=== PATIENT | female | born 1990 | race Hispanic/Latino ===

== ENCOUNTER 2017-11-21 10:25 | Inpatient (IN) | payer BC ==
--- NOTE | 2017-11-21 07:58 | PDOC.LDHP ---
Labor and Delivery H&P Chief complaint: scheduled section HPI: 27 y/o HF at 39-40 weeks by EDC of 11/26 with prior c/s who is admitted for repeat c/s today. Has diagnosis of A1GDM and has had average glycemic control with reported fasting glucose <100 and 2 hour post prandial <120. Reports good kovement. Has been normotensive... Current gestational age (weeks): 39 Due date: 11/26/17 Dating criteria: last menstrual period Grav: 3 Para: 1 Current complications: gestational diabetes Abnormal US findings: No Current medications: pre-sandip vitamins Previous surgical history: low tranverse CS Allergies/Adverse Reactions: Allergies Allergy/AdvReac Type Severity Reaction Status Date / Time No Known Allergies Allergy Verified 10/25/13 11:42 - Physical Exam General: NAD, resting, breathing through contractions, other Heart: RRR Lungs: nonlabored breathing Abdomen: gravid Extremeties: trace edema FHT: category 1 - OB Labs RH: positive Antibody Screen: negative HIV: negative RPR: negative HEPSAg: negative 1 hour GCT: positive GBS: negative Urine drug screen: not done Rubella: immune - Assessment L&D Assessment: scheduled repeat section [id number] diabetes - Plan Plan: admit to L&D, to OR for section
[~2017-11-21 10:25] MED LIST: Bicitra 30 ML UDCUP PO SCH; CEFAZOLIN/Water 2 GM/20 ML SYRINGE SLOW IVP SCH; Ondansetron HCl/PF 4 MG/2 ML Vial IVP PRN; Promethazine HCl 25 MG/ML VIAL IM PRN
[2017-11-21] MEDS: Lactated Ringer's 1,000 ML IV SCH ×4 (10:55→22:59)
[2017-11-21 11:13] LABS: Hemoglobin 13.6 g/dL (12.0-16.0); Mean Corpuscular HGB CONC 35.9 g/dL (32.0-36.0); Mean Corpuscular Hemoglobin 31.6 pg (27.0-31.0); Mean Corpuscular Volume 87.9 fL (78.0-98.0); Mean Platelet Volume 9.2 fL (7.4-10.4); Platelet Count 127 thou/uL (130-400); RBC Distribution Width 12.3 % (11.5-14.5); Red Blood Cell (RBC) Count 4.31 mill/uL (4.20-5.40); White Blood Cell (WBC) Count 7.8 thou/uL (4.8-10.8)
[2017-11-21 11:32] VITALS: BMI 38.4
[2017-11-21 11:51] LABS: HBSAg Index 0.18 S/CO (0-0.99); Hep B Surf Ag Non-Reactive S/CO (NonReactive); Syphilis Antibody Nonreactive (Nonreactive); Syphilis Antibody Index 0.04 S/CO (<1.00 Non-Reactive)
[2017-11-21] MEDS ORDERED: Ketorolac Tromethamine 30 MG/ML VIAL ONE ×2 (11:56→13:08)
[2017-11-21] MEDS ORDERED: PHENYLEPHRINE-NS 100 MCG/ML 10 ML SYRINGE ONE ×2 (11:56→12:15)
[2017-11-21] MEDS ORDERED: Fentanyl 100 MCG/2 ML VIAL ONE (12:13)
[2017-11-21] MEDS ORDERED: Oxytocin 10 UNITS/ML VIAL ONE (12:14)
[2017-11-21] MEDS ORDERED: Morphine PF 1 MG/ML SYR ONE (12:15)
[2017-11-21] MEDS ORDERED: ePHEDrine/0.9% NaCl/PF SYRINGE 50 mg/10 ml ONE (12:15)
[2017-11-21] MEDS ORDERED: Ondansetron HCl/PF 4 MG/2 ML Vial ONE (12:15)
[2017-11-21] MEDS ORDERED: Bupivacaine 0.75% W/DEXTROSE 8.25% 2 ML AMP ONE (12:15)
[2017-11-21] MEDS ORDERED: Lidocaine 2% PF Inj 2 ML VIAL ONE (12:22)
[2017-11-21] MEDS ORDERED: HYDROmorphone 2 MG/ML VIAL SLOW IVP PRN (13:01)
[2017-11-21] MEDS ORDERED: Ondansetron HCl/PF 4 MG/2 ML Vial IVP PRN ×3 (13:01→18:01)
--- NOTE | 2017-11-21 13:12 | PDOC.OPDEL ---
OB Operative/Delivery Note Delivery Dr/Surgeon: Chavez Assist: Mcmahon Pre-Delivery Diagnosis: scheduled section Procedure/Post Delivery Dx: repeat low transverse CS Weeks gestation: 39 Anesthesia: spinal - Findings A Sex: male Weight: 10 lb 15 oz - 1 min: 8 - 5 min: 9 - Additional Findings/Plan Placenta delivered: manual removal findings: low transverse hysterotomy without extension
[2017-11-21] MEDS ORDERED: Methylergonovine 0.2 MG/ML VIAL IM PRN (13:13)
[2017-11-21] MEDS ORDERED: Adacel (T-DAP) 0.5 ML VIAL IM ONE (13:13)
[2017-11-21] MEDS ORDERED: diphenhydrAMINE 25 MG CAP PO PRN (13:13)
[2017-11-21] MEDS ORDERED: Misoprostol 200 MCG TAB PR PRN (13:13)
[2017-11-21] MEDS ORDERED: Simethicone Chewable 80 MG TAB PO PRN (13:13)
[2017-11-21] MEDS ORDERED: Bisacodyl 10 MG SUPP PR PRN (13:13)
[2017-11-21] MEDS ORDERED: Lanolin Ointment 7 GM TUBE TOP PRN (13:13)
[2017-11-21] MEDS ORDERED: Zolpidem Tartrate 5 MG TAB PO PRN (13:13)
[2017-11-21] MEDS ORDERED: Ketorolac Tromethamine 30 MG/ML VIAL IVP SCH (13:15)
--- NOTE | 2017-11-21 13:28 | PDOC.EVN ---
Event Note - Event Note Event Note: CS Assist note: I was scrubbed and assisted with this patient's repeat LTCS via pfannestiel. Prior CS, Hx GDM. Dr Byrne/Lisandro No evidence complications. Baby vigorous, NC X 1
[2017-11-21] MEDS ORDERED: NS / Oxytocin 40 units/1000ml 1,000 ML ONE (14:39)
[2017-11-21] MEDS ORDERED: Meperidine HCl/PF 25 MG/ML VIAL ONE ×2 (14:54→15:18)
[2017-11-21] MEDS: Meperidine HCl/PF 25 MG/ML VIAL SLOW IVP PRN ×2 (14:55→15:18)
[2017-11-21] MEDS ORDERED: Morphine 4 MG/ML VIAL ONE (15:05)
[2017-11-21] MEDS ORDERED: diphenhydrAMINE 50 MG/ML VIAL IVP PRN (18:01)
[2017-11-21] MEDS ORDERED: Eucerin (Mineral Oil/Petrolatum,White) 30 gm Jar TOP PRN (18:01)
[2017-11-21] MEDS ORDERED: Naloxone HCl 0.4 mg/ml Vial IV PRN (18:01)
[2017-11-21] MEDS ORDERED: Promethazine HCl 25 MG SUPP PR PRN (18:01)
[2017-11-21] MEDS ORDERED: Promethazine HCl 25 MG/ML VIAL IM PRN (18:01)
[2017-11-21] MEDS ORDERED: Naloxone HCl 0.4 mg/ml Vial IVP PRN ×2 (18:01)
[2017-11-21] MEDS ORDERED: Acetaminophen 1,000 MG in Premix Bag 1 BAG IVPB PRN (18:04)
[2017-11-21] MEDS ORDERED: Communication Order-Pharmacy FS SCH (18:15)
[2017-11-21] MEDS: Ibuprofen 800 MG TAB PO SCH ×2 (18:17→22:59)
[2017-11-21] MEDS: Ketorolac Tromethamine 30 MG/ML VIAL IVP SCH (18:50)
--- NOTE | 2017-11-21 20:07 | OP ---
DATE OF PROCEDURE: 11/21/2017 PREOPERATIVE DIAGNOSES: 1. A 27-year-old [place] female G3, P1, A1 at 39-40 weeks gestation, prior section. 2. Class A1 gestational diabetes. POSTOPERATIVE DIAGNOSES: 1. A 27-year-old [place] female G3, P1, A1 at 39-40 weeks gestation, prior section. 2. Class A1 gestational diabetes. PROCEDURE PERFORMED: Repeat low transverse section without extension. SURGEON: Zeynep Byrne M.D. CHIEF CONTROLLER STATION SURGEON: Aditya Mcmahon M.D. ANESTHESIA: Spinal block. QUANTITATIVE BLOOD LOSS: 379 mL. FINDINGS: 1. Vigorous male infant, Apgars 8 and 9, weight 10 pounds, 5 ounces. 2. Normal appearing fallopian tubes, uterus, and ovaries. 3. Clear urine present in Basilio catheter post-procedure. DESCRIPTION OF OPERATIVE PROCEDURE: The patient previously received informed consent in regards to s matty. She was taken back to the operating room where she received a spinal block without complicat ions. She was then placed in the supine position, prepped and draped in usual sterile fashion. A Pf annenstiel incision was made through the previous scar site. It was carried down the fascia. Fascia was nicked in midline. Fascial incision was extended bilaterally using curved Clements scissors. Rectu s fascia was then dissected superiorly and inferiorly off the rectus muscle bellies. The rectus musc le bellies were divided in the midline. The peritoneal cavity was entered. A large Joseph O retract or was placed. A bladder flap was created in usual fashion. A 2 cm hysterotomy and this incision wa s made in the lower uterine segment. This is extended via finger fractionation. The amniotic bag wa s ruptured with clear amniotic fluid noted. The baby was delivered in the vertex presentation. The mouth and nares of the was bulb suctioned on the abdomen. The cord was doubly clamped and cut and the baby was handed to pediatric nurses in attendance. The usual cord blood was obtained. Plac enta was manually extracted. Uterus was curetted of any remaining placental fragments or dry laparot angie sponge. Hysterotomy incision was then closed in running locking fashion with #1 Monocryl suture. Hemostasis was confirmed. The pelvis was irrigated and suctioned. Hemostasis again was confirmed. Joseph O retractor was removed. The rectus muscle bellies were then inspected and noted to be hemo static. The fascia was then closed with 0 PDS suture x2 in running continuous fashion. Subcutaneous tissue was noted to be hemostatic prior to skin approximation with fantasma. The surgery was termina jasmyne. No surgical or anesthetic complications occurred.
[2017-11-21] MEDS: Docusate Calcium (SURFAK) 240 MG CAP PO SCH (22:59)
[2017-11-22] MEDS: Ketorolac Tromethamine 30 MG/ML VIAL IVP SCH ×5 (00:54→22:57)
[2017-11-22] MEDS: Ibuprofen 800 MG TAB PO SCH ×3 (05:33→21:17)
[2017-11-22 06:20] LABS: Hemoglobin 11.2 g/dL (12.0-16.0); Mean Corpuscular HGB CONC 35.7 g/dL (32.0-36.0); Mean Corpuscular Hemoglobin 31.9 pg (27.0-31.0); Mean Corpuscular Volume 89.3 fL (78.0-98.0); Mean Platelet Volume 8.9 fL (7.4-10.4); Platelet Count 112 thou/uL (130-400); RBC Distribution Width 12.2 % (11.5-14.5); White Blood Cell (WBC) Count 7.8 thou/uL (4.8-10.8)
[2017-11-22] MEDS: Lactated Ringer's 1,000 ML IV SCH ×3 (06:30→17:17)
--- NOTE | 2017-11-22 07:35 | PDOC.PP ---
Post Progress Note Post Day #: 1 PO intake tolerated: yes Flatus: yes Ambulation: yes Vital Signs (12 hours) Temp Pulse Resp BP Pulse Ox 11/22/17 04:30 98.5 F 67 18 110/61 98 11/21/17 23:52 98.2 F 62 18 137/79 11/21/17 19:49 97.6 F 64 18 112/74 97 Weight Weight 217 lb - Physical Examination General: NAD Cardiovascular: no m/r/g, RRR Respiratory: clear to auscultation bilaterally, non-labored breathing Abdominal: + bowel sounds, lochia, no distention, appropriately TTP Result Diagrams: 11/22/17 05:54 Additional Labs: Post Labs Blood Type O POSITIVE 11/21/17 10:59 Hep Bs Antigen Non-Reactive S/CO (NonReactive) 11/21/17 10:59 - Assessment/Plan Doing well post op day 1--routine care. Anticipate discharge in AM.
[2017-11-22] MEDS: Docusate Calcium (SURFAK) 240 MG CAP PO SCH ×2 (10:01→21:17)
[2017-11-22] MEDS: Prenatal Vitamin 1 TAB PO SCH (10:01)
[2017-11-22] MEDS: traMADol HCl 50 MG TAB PO PRN (17:11)
[2017-11-23] MEDS: Lactated Ringer's 1,000 ML IV SCH ×2 (00:21→11:00)
[2017-11-23] MEDS: traMADol HCl 50 MG TAB PO PRN ×2 (05:11→20:37)
[2017-11-23] MEDS: Ibuprofen 800 MG TAB PO SCH ×3 (05:11→21:41)
[2017-11-23] MEDS: Ketorolac Tromethamine 30 MG/ML VIAL IVP SCH ×2 (07:51→11:01)
--- NOTE | 2017-11-23 08:24 | PDOC.PP ---
Post Progress Note Post Day #: 2 PO intake tolerated: yes Flatus: yes Ambulation: yes Vital Signs (12 hours) Temp Pulse Resp BP 11/23/17 07:51 97.8 F 58 L 20 139/81 11/23/17 04:55 97.6 F 63 18 124/74 11/23/17 01:09 97.9 F 72 18 118/78 11/22/17 21:15 97.5 F L 65 20 122/73 Weight Weight 217 lb - Physical Examination General: NAD Cardiovascular: no m/r/g, RRR Respiratory: clear to auscultation bilaterally, non-labored breathing Abdominal: + bowel sounds, lochia, no distention, appropriately TTP Result Diagrams: 11/22/17 05:54 Additional Labs: Post Labs Blood Type O POSITIVE 11/21/17 10:59 Hep Bs Antigen Non-Reactive S/CO (NonReactive) 11/21/17 10:59 - Assessment/Plan Doing well post op day 2 from repeat c/s..D/c home if baby is discharged. Sanjana out post op day 7 and 6 week post .
[2017-11-23] MEDS: Docusate Calcium (SURFAK) 240 MG CAP PO SCH ×2 (10:00→21:41)
[2017-11-23] MEDS: Prenatal Vitamin 1 TAB PO SCH (10:01)
[2017-11-24] MEDS: Lactated Ringer's 1,000 ML IV SCH ×2 (00:43→08:09)
[2017-11-24] MEDS: Ibuprofen 800 MG TAB PO SCH (06:06)
--- NOTE | 2017-11-24 07:53 | PDOC.PP ---
Post Progress Note Post Day #: 3 PO intake tolerated: yes Flatus: yes Ambulation: yes Vital Signs (12 hours) Temp Pulse Resp BP 11/23/17 20:24 98.0 F 70 18 137/85 Weight Weight 217 lb - Physical Examination Abdominal: + bowel sounds, lochia, no distention, appropriately TTP Extremities: negative homans (B) Result Diagrams: 11/22/17 05:54 Additional Labs: Post Labs Blood Type O POSITIVE 11/21/17 10:59 Hep Bs Antigen Non-Reactive S/CO (NonReactive) 11/21/17 10:59 - Assessment/Plan post op day 3 .doing well. Baby should be discharged today. Has f/u 1 and 6 weeks post op.
[2017-11-24] MEDS: Prenatal Vitamin 1 TAB PO SCH (08:08)
[2017-11-24] MEDS: Docusate Calcium (SURFAK) 240 MG CAP PO SCH (08:08)
[2017-11-24 08:23] VITALS: BP 134/88; TEMP 97.8
== END 2017-11-24 13:45 | disposition home or self-care (01) | DRG 766 ==
LOC: L&D 10:25 → 3SW 16:13
PROVIDERS: ADMIT Obstetrics & Gynecology; ATTEND Obstetrics & Gynecology
PROC: 10D00Z1 Extraction of Products of Conception, Low, Open Approach (ICD-10-PCS; principal; 2017-11-21)
DX: O34.211 Maternal care for low transverse scar from previous cesarean delivery (principal); Z3A.39 39 weeks gestation of pregnancy; Z37.0 Single live birth; O69.81X0 Labor and delivery complicated by cord around neck, without compression, not applicable or unspecified; O24.429 Gestational diabetes mellitus in childbirth, unspecified control
CPT/HCPCS: 36415; 51702; 82947; 85027; 86780; 86850; 86900; 86901; 87340; J1885; J2175; J2270; J2274; J2405; J2590; J3010; J3490

== ENCOUNTER 2019-02-23 11:55 | Emergency (ER) | payer BC, OTHER ==
[2019-02-23 13:22] LABS: #Eosinphils 0.1 thou/uL (0.0-0.7); #Lymphocytes 2.1 thou/uL (1.20-3.40); #Monocytes 0.5 thou/uL (0.11-0.59); #Neutrophils 3.7 thou/uL (1.40-6.50); %Basophils 0.6 % (0.0-1.0); %Eosinophils 1.2 % (0.0-10.0); %Lymphocytes 33.1 % (21.0-51.0); %Neutrophils 58.1 % (42.0-75.0); Hemoglobin 13.6 g/dL (12.0-16.0); Mean Corpuscular Hemoglobin 30.6 pg (27.0-31.0); Mean Corpuscular Volume 87.4 fL (78.0-98.0); Platelet Count 210 thou/uL (130-400); RBC Distribution Width 11.6 % (11.5-14.5); Red Blood Cell (RBC) Count 4.46 mill/uL (4.20-5.40); White Blood Cell (WBC) Count 6.4 thou/uL (4.8-10.8)
[2019-02-23 14:09] LABS: Bilirubin Negative (Negative); Blood, Urine 3+ (Negative); Clarity Clear (Clear); Glucose, Urine (Dipstick) Normal (Negative); Leukocyte Negative Leu/uL (Negative); Nitrite Negative (Negative); Protein, Urine (Dipstick) Negative (Neg-Trace); RBC/HPF Greater than 50 HPF (0-3); Squamous Epithelial 0-3 HPF (0-3); Urobilinogen Normal mg/dL (Less than 2)
[2019-02-23 14:17] LABS: Bacteria/HPF Rare-Few HPF (None Seen)
--- NOTE | 2019-02-23 15:55 | ULT ---
TRANSABDOMINAL TRANSVAGINAL PELVIC ULTRASOUND DATE:: 02/23/2019 2:10 PM CLINICAL HISTORY: 6 weeks with vaginal cramping and bleeding. COMPARISON: None. TECHNIQUE: Grayscale, color Doppler and spectral Doppler images were obtained of the pelvis see a tra nsabdominal transvaginal approach Uterus: Size: 7.8 x 4.5 x 5.4 cm Mass: None Cervix: Within normal limits Endometrium: Thickened. Small amount of fluid is seen within the endometrial canal. No intrauterine g estational sac is demonstrated. Endometrial Thickness: 16 mm Ovaries: Size: right measures 2.8 x 1.5 x 2.5 cm; left measures 2.9 x 3.6 x 1.6 cm Mass: There is a 2.4 cm left ovarian cyst. Right ovary is normal-appearing.. Flow: Normal Cul-de-sac: Minimal free fluid IMPRESSION: 1. of undetermined location. Findings may reflect missed , early or ectop ic . Continued clinical and sonographic follow-up is recommended. 2. Left ovarian cyst
--- NOTE | 2019-02-24 01:29 | CON ---
DATE OF CONSULTATION: 02/23/2019 CONSULTING PHYSICIAN: Dr. Barrie Rodriguez in the emergency department. HISTORY OF PRESENT ILLNESS: This is a 29-year-old G4, P2-0-1-2, at approximately 6 weeks , who presented to the emergency department with spotting since this morning. She reports that it was initially vp platforms red, but has become darker. She denies any abdominal cramping or pain of any sort. She denies any nausea, vomiting, or other concerns. She did not pass any clots or tissue. REVIEW OF SYSTEMS: Negative for head, eyes, ears, nose, throat, cardiovascular, respiratory, GI, , neuropsych, musculoskeletal, skin, or constitutional symptoms other than mentioned above. PAST MEDICAL HISTORY: Type 2 diabetes. PAST SURGICAL HISTORY: x2. MEDICATIONS: 1. vitamins. 2. Metformin. ALLERGIES: NO KNOWN DRUG ALLERGIES. SOCIAL HISTORY: Negative for tobacco, alcohol, or drug abuse. FAMILY HISTORY: Noncontributory. PHYSICAL EXAMINATION: VITAL SIGNS: Blood pressure 118/65, pulse 74, respiratory rate 16, temperature 97.3. GENERAL: Awake, alert, no acute distress. Appears comfortable. CHEST: Nonlabored. ABDOMEN: Obese, soft, nontender to palpation. No guarding. No rebound. PELVIC: Deferred. LABORATORY DATA: HCG 4606. Hemoglobin 13.6, hematocrit 39.0, otherwise unremarkable. IMAGING STUDIES: Pelvic ultrasound was performed revealing a thickened endometrial stripe with a small fluid collection at the fundus. No yolk sac or pole was seen. There were no masses visible. There is minimal free fluid. ASSESSMENT AND PLAN: A 29-year-old G4, P2-0-1-2, at approximately 6 weeks gestation with likely spontaneous , but cannot rule out ectopic . Given the patient's stability and lack of signs or symptoms of ectopic, we will have her follow up on Tuesday for repeat HCG level. The patient understands that an ectopic cannot be ruled out and this could be life-threatening to her and she agrees to follow up. She also agrees to return with onset of severe abdominal pain or heavy vaginal bleeding. The patient can be discharged home, to follow up Tuesday for repeat HCG and further management to be determined at that time. Job ID: [id number]
== END 2019-02-23 17:51 | disposition home or self-care (01) ==
LOC: ERS 11:55
DX: O20.9 Hemorrhage in early pregnancy, unspecified (principal); Z3A.01 Less than 8 weeks gestation of pregnancy
CPT/HCPCS: 36415; 76856; 81003; 81015; 84702; 85025; 86900; 86901

== ENCOUNTER 2019-02-25 15:47 | Emergency (ER) | payer BC ==
--- NOTE | 2019-02-25 17:41 | ULT ---
TRANSABDOMINAL AND ENDOVAGINAL PELVIC ULTRASOUND: HISTORY:Follow-up ultrasound. Questionable nonviable . COMPARISON: None TECHNIQUE: Transabdominal and endovaginal imaging of the pelvis is performed. Ovaries are interrogate d with grayscale, color flow, Doppler imaging and spectral wave form analysis FINDINGS: Uterus: No myometrial masses. Uterus measurin.5 x 3.7 x 5.6 cm. Endometrium: There is an irregular-appearing gestational sac, possibly yolk sac and pole. [place]-rump length is 0.56 cm corresponding to a gestational age of 6 weeks 2 days heart tones: Absent . Free fluid: None Right ovary: Normal echotexture Right ovary measurement: 1.4 x 2.9 x 2.2 cm Left ovary: Anechoic focus measuring 1.4 x 2.3 x 1.6 cm suggesting a ovarian cyst Left ovary measurements: 1.7 x 2.9 x 3.3 cm Ovarian Doppler: There is vascular flow to the left and right ovary. IMPRESSION: 1. Single intrauterine gestation. Gestational age by crown-rump length is 6 weeks 2 days. heart tones are not appreciated. Differential considerations still include an early intrauterine versus a blighted ovum. Follow-up ultrasound and serial beta HCG's are recommended. Transcribed Date/Time: 02/25/2019 6:02 PM
--- NOTE | 2019-02-25 22:11 | CON ---
DATE OF CONSULTATION: 02/25/2019 TIME OF SERVICE: 05:30 p.m. CHIEF COMPLAINT: Followup. HISTORY OF PRESENT ILLNESS: This is a 29-year-old G4, P2-0-1-2 at approximately 6 weeks gestation, who returns for 48-hour followup after her last exam on Tuesday. At that time, she came in for spotting, but no pain and was found to have an HCG level of 4606 with no identifiable . She had been given precautions and was advised to return after 48 hours for repeat HCG and transvaginal ultrasound. She denies any bleeding, abdominal pain, or other concerns since that time. REVIEW OF SYSTEMS: Negative for head, eyes, ears, nose, throat, cardiovascular, respiratory, GI, , neuropsych, musculoskeletal, skin, or constitutional symptoms other than mentioned above. PAST MEDICAL HISTORY: Type-2 diabetes. PAST SURGICAL HISTORY: x2. MEDICATIONS: 1. vitamin. 2. Metformin. ALLERGIES: NO KNOWN DRUG ALLERGIES. SOCIAL HISTORY: Negative for tobacco, alcohol, or drug abuse. FAMILY HISTORY: Noncontributory. PHYSICAL EXAMINATION: VITAL SIGNS: Blood pressure 114/62, pulse 75, respiratory rate 16, temperature 98.0. GENERAL: Awake, alert, no acute distress. Exam is otherwise deferred. LABORATORY DATA: HCG level 6814.97 (48% increase). IMAGING DATA: Transvaginal ultrasound shows an intrauterine with a pole measuring approximately 6 weeks 2 days, no heart tones noted, no evidence of adnexal masses noted. ASSESSMENT AND PLAN: A 29-year-old G4, P2-0-1-2, at approximately 6 weeks 2 days by LMP in today's ultrasound. She has an appropriate rise in her HCG level with ultrasound findings of an intrauterine . There are no heart tones at this point, but it may be just an early gestation. She will follow up next week with Dr. Burch as scheduled to have a viability ultrasound. She was advised to continue her vitamins and was given precautions. Job ID: [id number] [facility]
== END 2019-02-25 17:58 | disposition home or self-care (01) ==
LOC: L&D/OP 15:47 → ERS 15:47 → EDSTATUS 15:57 → ERS 17:58
DX: O99.89 Other specified diseases and conditions complicating pregnancy, childbirth and the puerperium (principal); Z3A.01 Less than 8 weeks gestation of pregnancy
CPT/HCPCS: 36415; 76856; 84702

== ENCOUNTER 2019-03-07 14:39 | Outpatient (CLI) | payer BC ==
--- NOTE | 2019-03-07 15:23 | ULT ---
Obstetric sonogram transabdominal and transvaginal imaging HISTORY: Follow-up. Possible nonviable . COMPARISON: 02/25/2019. FINDINGS: Intrauterine gestational sac is again demonstrated. It is somewhat irregular and shape. Sma ll yolk sac and pole. Gestational sac size correlates with 6 weeks 2 days gestational age. [place]-rump length correlate with 6 weeks 4 days gestational age. No heart motion is detectable. No free fluid within the pelvis. Right ovary has normal appearance. Left ovary not visible. IMPRESSION: No significant growth since the sonogram 10 days ago. No heart motion demonstrated. Sonographic findings suggest intrauterine demise.
== END 2019-03-07 14:40 | disposition home or self-care (01) ==
LOC: SCSULT 14:39
PROVIDERS: ATTEND Nurse Practitioner
DX: O09.91 Supervision of high risk pregnancy, unspecified, first trimester (principal)
CPT/HCPCS: 76856